=== PATIENT | male | born 1980 | race African-American/Black ===

== ENCOUNTER 2017-10-11 01:58 | Emergency (ER) | payer OTHER ==
[~2017-10-11] VITALS: Ht 165.1 cm; Wt 83.0 kg
[2017-10-11 02:04] VITALS: BP 121/70
== END 2017-10-11 02:54 | disposition home or self-care (01) ==
LOC: ER 01:58
DX: S61.210A Laceration without foreign body of right index finger without damage to nail, initial encounter (principal); W26.0XXA Contact with knife, initial encounter; Y92.009 Unspecified place in unspecified non-institutional (private) residence as the place of occurrence of the external cause; Y93.89 Activity, other specified; Y99.8 Other external cause status